=== PATIENT | male | born 1955 | race Caucasian/White ===

== ENCOUNTER 2021-08-13 20:06 | Inpatient (IN) | payer OTHER ==
[2021-08-13 20:35] VITALS: BMI 25.0
[2021-08-13] MEDS ORDERED: Carvedilol 25 MG TAB PO SCH (21:15)
[2021-08-13] MEDS ORDERED: guaiFENesin ER 600 MG TAB PO SCH (21:30)
[2021-08-13] MEDS: Nicotine 21 MG PATCH TD SCH (21:48)
[2021-08-13] MEDS: methylPREDNISolone Sod Succ 40 MG VIAL IVP SCH (21:48)
[2021-08-13] MEDS: Apixaban 5 MG TAB PO SCH (21:49)
[2021-08-13] MEDS: cefTRIAXone\\ROCEPHIN 1 GM in Sodium Chloride 0.9% 100 ML IVPB SCH (22:58)
[2021-08-14 04:48] LABS: #Monocytes 0.1 10x3/uL (0.0-1.1); #Neutrophils 3.1 10x3/uL (1.5-8.4); %Basophils 0.5 % (0.0-2.0); %Lymphocytes 17.5 % (18.0-47.0); %Monocytes 2.3 % (0.0-10.0); %Neutrophils 79.4 % (40.0-75.0); Hemoglobin 14.1 g/dL (13.5-17.5); Mean Corpuscular HGB CONC 33.3 g/dL (32.0-36.0); Mean Corpuscular Hemoglobin 34.8 pg (27.0-33.0); Mean Corpuscular Volume 104.4 fl (81.2-95.1); Platelet Count 166 10x3/uL (150-450); RBC Distribution Width 12.4 % (11.5-14.5); Red Blood Cell (RBC) Count 4.05 10x6/uL (4.32-5.72); White Blood Cell (WBC) Count 3.9 10x3/uL (3.5-10.5)
[2021-08-14 04:51] LABS: Anion Gap 13 mmol/L (10-20); BUN (Urea Nitrogen) 21 mg/dL (8.4-25.7); Calc. Creatinine Clearance 86 mL/min (70-130); Carbon Dioxide 32 mmol/L (23-31); Cardiac Risk 2.7 (Less than 4.5); Chloride 94 mmol/L (98-107); Cholesterol 145 mg/dl (< 200 Desired); Glucose 275 mg/dL (80-115); HDL Cholesterol 53 mg/dL (>60 Neg Risk); LDL Cholesterol, Calculated 77 mg/dL; Magnesium 2.2 mg/dL (1.6-2.6); Potassium 4.3 mmol/L (3.5-5.1); Sodium 135 mmol/L (136-145); Triglycerides 73 mg/dL (Less than 150)
[2021-08-14] MEDS: Arformoterol 15 MCG/2 ML NEB NEB SCH ×2 (07:10→19:22)
[2021-08-14] MEDS: Budesonide 0.5 MG/2 ML NEB NEB SCH ×2 (07:20→19:22)
[2021-08-14] MEDS: Lisinopril 5 MG TAB PO SCH (08:44)
[2021-08-14] MEDS: Amiodarone 200 MG TAB PO SCH ×2 (08:44→21:04)
[2021-08-14] MEDS: Carvedilol 25 MG TAB PO SCH ×2 (08:44→17:12)
[2021-08-14] MEDS: methylPREDNISolone Sod Succ 40 MG VIAL IVP SCH ×2 (08:44→21:05)
[2021-08-14] MEDS: guaiFENesin ER 600 MG TAB PO SCH ×2 (08:44→21:04)
[2021-08-14] MEDS: Apixaban 5 MG TAB PO SCH ×2 (08:45→21:04)
[2021-08-14] MEDS ORDERED: FLU VACC QS2021-22(6MOS UP)/PF 60 MCG/0.5 ML SYRINGE IM ONE (09:00)
[2021-08-14] MEDS ORDERED: Dextrose 50% Abboject 50 ML SYRINGE SLOW IVP PRN (12:47)
[2021-08-14] MEDS ORDERED: Dextrose 5% in Water 1,000 ML IV PRN (12:47)
[2021-08-14] MEDS: Nicotine 21 MG PATCH TD SCH (21:05)
[2021-08-14] MEDS: HumaLOG 300 UNITS/3 ML VIAL SC PRN (21:11)
[2021-08-14] MEDS: cefTRIAXone\\ROCEPHIN 1 GM in Sodium Chloride 0.9% 100 ML IVPB SCH (22:19)
[2021-08-15 05:23] LABS: Anion Gap 14 mmol/L (10-20); BUN (Urea Nitrogen) 32 mg/dL (8.4-25.7); Calc. Creatinine Clearance 84 mL/min (70-130); Calcium 8.6 mg/dL (7.8-10.44); Carbon Dioxide 31 mmol/L (23-31); Chloride 97 mmol/L (98-107); Glucose 151 mg/dL (80-115); Potassium 4.6 mmol/L (3.5-5.1); Sodium 137 mmol/L (136-145)
[2021-08-15] MEDS: Budesonide 0.5 MG/2 ML NEB NEB SCH ×2 (07:24→18:55)
[2021-08-15] MEDS: Arformoterol 15 MCG/2 ML NEB NEB SCH ×2 (07:27→18:55)
[2021-08-15] MEDS: Apixaban 5 MG TAB PO SCH ×2 (09:13→20:58)
[2021-08-15] MEDS: Folic Acid 1 MG TAB PO SCH (09:13)
[2021-08-15] MEDS: Amiodarone 200 MG TAB PO SCH ×2 (09:14→20:58)
[2021-08-15] MEDS: Lisinopril 5 MG TAB PO SCH (09:14)
[2021-08-15] MEDS: Carvedilol 25 MG TAB PO SCH ×2 (09:14→18:19)
[2021-08-15] MEDS: guaiFENesin ER 600 MG TAB PO SCH ×2 (09:15→20:58)
[2021-08-15] MEDS: methylPREDNISolone Sod Succ 40 MG VIAL IVP SCH ×3 (09:31→20:58)
[2021-08-15 11:25] LABS: Hemoglobin A1c 5.5 % (4.0-6.0)
[2021-08-15] MEDS: HumaLOG 300 UNITS/3 ML VIAL SC PRN ×2 (18:21→22:12)
[2021-08-15] MEDS: cefTRIAXone\\ROCEPHIN 1 GM in Sodium Chloride 0.9% 100 ML IVPB SCH (21:01)
[2021-08-15] MEDS: Nicotine 21 MG PATCH TD SCH (21:01)
[2021-08-16] MEDS: Arformoterol 15 MCG/2 ML NEB NEB SCH ×3 (07:10→20:03)
[2021-08-16] MEDS: Budesonide 0.5 MG/2 ML NEB NEB SCH ×2 (07:20→19:10)
[2021-08-16] MEDS: methylPREDNISolone Sod Succ 40 MG VIAL IVP SCH ×3 (09:06→17:37)
[2021-08-16] MEDS: Carvedilol 25 MG TAB PO SCH ×2 (09:07→17:37)
[2021-08-16] MEDS: Amiodarone 200 MG TAB PO SCH ×2 (09:07→21:25)
[2021-08-16] MEDS: guaiFENesin ER 600 MG TAB PO SCH (09:07)
[2021-08-16] MEDS: Apixaban 5 MG TAB PO SCH ×2 (09:07→21:25)
[2021-08-16] MEDS: Lisinopril 5 MG TAB PO SCH (09:08)
[2021-08-16] MEDS: Folic Acid 1 MG TAB PO SCH (09:08)
[2021-08-16] MEDS: Guaifenesin DM 100-10/5 ML UDCUP PO PRN ×2 (12:40→21:26)
[2021-08-16] MEDS: HumaLOG 300 UNITS/3 ML VIAL SC PRN (21:33)
[2021-08-17] MEDS: cefTRIAXone\\ROCEPHIN 1 GM in Sodium Chloride 0.9% 100 ML IVPB SCH ×2 (01:31→21:59)
[2021-08-17] MEDS: Nicotine 21 MG PATCH TD SCH ×2 (01:31→20:13)
[2021-08-17] MEDS: methylPREDNISolone Sod Succ 40 MG VIAL IVP SCH ×5 (01:31→23:17)
[2021-08-17] MEDS: Guaifenesin DM 100-10/5 ML UDCUP PO PRN ×2 (06:18→14:41)
[2021-08-17] MEDS: Arformoterol 15 MCG/2 ML NEB NEB SCH (07:10)
[2021-08-17] MEDS: Budesonide 0.5 MG/2 ML NEB NEB SCH ×2 (07:20→19:55)
[2021-08-17] MEDS: Folic Acid 1 MG TAB PO SCH (07:48)
[2021-08-17] MEDS: Lisinopril 5 MG TAB PO SCH (07:48)
[2021-08-17] MEDS: Carvedilol 25 MG TAB PO SCH ×2 (07:48→16:50)
[2021-08-17] MEDS: Apixaban 5 MG TAB PO SCH ×2 (07:48→20:12)
[2021-08-17] MEDS: Amiodarone 200 MG TAB PO SCH ×2 (07:48→20:12)
[2021-08-18] MEDS: Guaifenesin DM 100-10/5 ML UDCUP PO PRN ×2 (00:41→20:28)
[2021-08-18] MEDS: methylPREDNISolone Sod Succ 40 MG VIAL IVP SCH ×2 (06:16→11:17)
[2021-08-18] MEDS: HumaLOG 300 UNITS/3 ML VIAL SC PRN ×4 (06:45→20:31)
[2021-08-18] MEDS: Budesonide 0.5 MG/2 ML NEB NEB SCH ×2 (07:35→19:10)
[2021-08-18] MEDS: Arformoterol 15 MCG/2 ML NEB NEB SCH ×2 (07:35→18:55)
[2021-08-18] MEDS: Apixaban 5 MG TAB PO SCH ×2 (07:42→20:27)
[2021-08-18] MEDS: Lisinopril 5 MG TAB PO SCH (07:42)
[2021-08-18] MEDS: Carvedilol 25 MG TAB PO SCH ×2 (07:43→16:38)
[2021-08-18] MEDS: Folic Acid 1 MG TAB PO SCH (07:43)
[2021-08-18] MEDS: Amiodarone 200 MG TAB PO SCH ×2 (07:43→20:27)
[2021-08-18 14:23] LABS: ALT (SGPT) 38 U/L (8-55); AST (SGOT) 19 U/L (5-34); Alkaline Phosphatase 64 U/L (40-110); Anion Gap 10 mmol/L (10-20); BUN (Urea Nitrogen) 23 mg/dL (8.4-25.7); Bilirubin, Total 0.2 mg/dL (0.2-1.2); Calc. Creatinine Clearance 114 mL/min (70-130); Calcium 8.9 mg/dL (7.8-10.44); Carbon Dioxide 30 mmol/L (23-31); Chloride 98 mmol/L (98-107); Glucose 147 mg/dL (80-115); Potassium 4.4 mmol/L (3.5-5.1); Sodium 134 mmol/L (136-145)
[2021-08-18 14:43] LABS: SARS-CoV-2 NAA Rapid Test Not Detected (NotDetected)
[2021-08-18 15:08] LABS: Actual Bicarbonate (HCO3a) 27.1 mEq/L (22-28); Base Excess (BEa) 2.8 mEq/L (-2.0 to +3.0); CO2 Tension 40.7 mmHg (35.0-45.0); Calcium, Ionized (arterial) 1.23 mmol/L (1.12-1.30); Carboxyhemoglobin (COHb) 1.1 gm% (0.0-3.0); Hemoglobin (Hb) 13.7 g/dL (14.0-18.0); O2 Tension (PaO2), arterial 56.2 mmHg (> 80.0); Potassium - ABG Lab 4.3 mmol/L (3.70-5.30); Puncture Site LRA; pH, Arterial 7.44 (7.35-7.45)
[2021-08-18 15:13] LABS: ALV-art Gradient 42.655 mmHg (0-20)
[2021-08-18 17:48] LABS: Legionella Urinary Ag Negative (Negative); Strep pneumo Urine Ag NEGATIVE (NEGATIVE)
[2021-08-18] MEDS: methylPREDNISolone Sod Succ/PF 125 MG/2 ML VIAL IVP SCH (20:27)
[2021-08-18] MEDS: Nicotine 21 MG PATCH TD SCH (20:28)
[2021-08-18] MEDS: cefTRIAXone\\ROCEPHIN 1 GM in Sodium Chloride 0.9% 100 ML IVPB SCH (22:17)
[2021-08-19] MEDS: methylPREDNISolone Sod Succ/PF 125 MG/2 ML VIAL IVP SCH ×2 (04:52→10:56)
[2021-08-19] MEDS: HumaLOG 300 UNITS/3 ML VIAL SC PRN ×3 (06:38→16:32)
[2021-08-19] MEDS: Arformoterol 15 MCG/2 ML NEB NEB SCH ×2 (07:40→19:50)
[2021-08-19] MEDS: Budesonide 0.5 MG/2 ML NEB NEB SCH ×2 (07:45→19:50)
[2021-08-19] MEDS: Lisinopril 5 MG TAB PO SCH (07:46)
[2021-08-19] MEDS: Carvedilol 25 MG TAB PO SCH ×2 (07:47→16:32)
[2021-08-19] MEDS: Apixaban 5 MG TAB PO SCH ×2 (07:47→20:59)
[2021-08-19] MEDS: Folic Acid 1 MG TAB PO SCH (07:47)
[2021-08-19] MEDS: Amiodarone 200 MG TAB PO SCH ×2 (07:47→20:59)
[2021-08-19 08:28] LABS: #Monocytes 0.5 10x3/uL (0.0-1.1); %Basophils 0.1 % (0.0-2.0); %Lymphocytes 3.7 % (18.0-47.0); %Monocytes 4.3 % (0.0-10.0); %Neutrophils 90.3 % (40.0-75.0); Hemoglobin 11.9 g/dL (13.5-17.5); Mean Corpuscular HGB CONC 33.3 g/dL (32.0-36.0); Mean Corpuscular Hemoglobin 35.1 pg (27.0-33.0); Mean Corpuscular Volume 105.3 fl (81.2-95.1); Mean Platelet Volume 10.6 fl (7.4-10.4); Platelet Count 211 10x3/uL (150-450); RBC Distribution Width 12.4 % (11.5-14.5); Red Blood Cell (RBC) Count 3.39 10x6/uL (4.32-5.72); White Blood Cell (WBC) Count 11.1 10x3/uL (3.5-10.5)
[2021-08-19 08:31] LABS: ALT (SGPT) 36 U/L (8-55); AST (SGOT) 19 U/L (5-34); Albumin 2.9 g/dL (3.4-4.8); Alkaline Phosphatase 59 U/L (40-110); Anion Gap 8 mmol/L (10-20); BUN (Urea Nitrogen) 22 mg/dL (8.4-25.7); Bilirubin, Total 0.3 mg/dL (0.2-1.2); Calc. Creatinine Clearance 118 mL/min (70-130); Calcium 8.7 mg/dL (7.8-10.44); Carbon Dioxide 33 mmol/L (23-31); Chloride 97 mmol/L (98-107); Globulin 1.9 g/dL (2.4-3.5); Glucose 156 mg/dL (80-115); Potassium 4.3 mmol/L (3.5-5.1); Protein, Total 4.8 g/dL (5.8-8.1); Sodium 134 mmol/L (136-145)
[2021-08-19 10:20] LABS: Macrocytosis SLIGHT = 6-15 cells (100X) (0-5/hpf); Platelet Morphology Comment Appears Adequate
[2021-08-19] MEDS: Guaifenesin DM 100-10/5 ML UDCUP PO PRN ×2 (10:56→22:28)
[2021-08-19] MEDS: Nicotine 21 MG PATCH TD SCH (21:58)
[2021-08-20 04:28] LABS: ALT (SGPT) 33 U/L (8-55); AST (SGOT) 16 U/L (5-34); Albumin 2.6 g/dL (3.4-4.8); Alkaline Phosphatase 48 U/L (40-110); Anion Gap 8 mmol/L (10-20); BUN (Urea Nitrogen) 21 mg/dL (8.4-25.7); Bilirubin, Total 0.4 mg/dL (0.2-1.2); Calc. Creatinine Clearance 116 mL/min (70-130); Calcium 8.4 mg/dL (7.8-10.44); Carbon Dioxide 35 mmol/L (23-31); Globulin 1.7 g/dL (2.4-3.5); Glucose 178 mg/dL (80-115); Potassium 4.8 mmol/L (3.5-5.1); Protein, Total 4.3 g/dL (5.8-8.1); Sodium 133 mmol/L (136-145)
[2021-08-20 04:34] LABS: Chloride 95 mmol/L (98-107)
[2021-08-20 04:35] LABS: #Monocytes 0.7 10x3/uL (0.0-1.1); #Neutrophils 8.8 10x3/uL (1.5-8.4); %Basophils 0.1 % (0.0-2.0); %Monocytes 7.2 % (0.0-10.0); %Neutrophils 86.7 % (40.0-75.0); Hemoglobin 11.3 g/dL (13.5-17.5); Mean Corpuscular HGB CONC 33.5 g/dL (32.0-36.0); Mean Corpuscular Volume 104.3 fl (81.2-95.1); Mean Platelet Volume 10.8 fl (7.4-10.4); Platelet Count 198 10x3/uL (150-450); RBC Distribution Width 12.3 % (11.5-14.5); Red Blood Cell (RBC) Count 3.23 10x6/uL (4.32-5.72); White Blood Cell (WBC) Count 10.2 10x3/uL (3.5-10.5)
[2021-08-20] MEDS: Budesonide 0.5 MG/2 ML NEB NEB SCH ×2 (07:02→19:15)
[2021-08-20] MEDS: Arformoterol 15 MCG/2 ML NEB NEB SCH ×2 (07:02→19:05)
[2021-08-20] MEDS: Carvedilol 25 MG TAB PO SCH ×2 (10:14→17:28)
[2021-08-20] MEDS: Lisinopril 5 MG TAB PO SCH (10:14)
[2021-08-20] MEDS: Apixaban 5 MG TAB PO SCH ×2 (10:15→20:26)
[2021-08-20] MEDS: Amiodarone 200 MG TAB PO SCH ×2 (10:15→20:26)
[2021-08-20] MEDS: Folic Acid 1 MG TAB PO SCH (10:15)
[2021-08-20] MEDS: Guaifenesin DM 100-10/5 ML UDCUP PO PRN ×2 (10:34→23:57)
[2021-08-20] MEDS: HumaLOG 300 UNITS/3 ML VIAL SC PRN (13:20)
[2021-08-20] MEDS: Nicotine 21 MG PATCH TD SCH (20:26)
[2021-08-21 04:27] LABS: ALT (SGPT) 39 U/L (8-55); AST (SGOT) 20 U/L (5-34); Albumin 2.7 g/dL (3.4-4.8); Alkaline Phosphatase 47 U/L (40-110); Anion Gap 9 mmol/L (10-20); BUN (Urea Nitrogen) 22 mg/dL (8.4-25.7); Bilirubin, Total 0.5 mg/dL (0.2-1.2); Calc. Creatinine Clearance 121 mL/min (70-130); Calcium 8.4 mg/dL (7.8-10.44); Carbon Dioxide 34 mmol/L (23-31); Chloride 96 mmol/L (98-107); Globulin 1.7 g/dL (2.4-3.5); Glucose 92 mg/dL (80-115); Potassium 4.7 mmol/L (3.5-5.1); Protein, Total 4.4 g/dL (5.8-8.1); Sodium 134 mmol/L (136-145)
[2021-08-21 04:45] LABS: #Monocytes 1.3 10x3/uL (0.0-1.1); #Neutrophils 8.1 10x3/uL (1.5-8.4); %Basophils 0.2 % (0.0-2.0); %Eosinophils 0.2 % (0.0-6.0); %Lymphocytes 9.4 % (18.0-47.0); %Monocytes 11.8 % (0.0-10.0); %Neutrophils 76.1 % (40.0-75.0); Hemoglobin 12.2 g/dL (13.5-17.5); Mean Corpuscular HGB CONC 34.2 g/dL (32.0-36.0); Mean Corpuscular Hemoglobin 35.1 pg (27.0-33.0); Mean Corpuscular Volume 102.6 fl (81.2-95.1); Platelet Count 194 10x3/uL (150-450); RBC Distribution Width 12.5 % (11.5-14.5); Red Blood Cell (RBC) Count 3.48 10x6/uL (4.32-5.72); White Blood Cell (WBC) Count 10.6 10x3/uL (3.5-10.5)
[2021-08-21] MEDS: Arformoterol 15 MCG/2 ML NEB NEB SCH ×2 (07:45→18:55)
[2021-08-21] MEDS: Budesonide 0.5 MG/2 ML NEB NEB SCH ×2 (08:50→19:15)
[2021-08-21] MEDS: Lisinopril 5 MG TAB PO SCH (08:56)
[2021-08-21] MEDS: Amiodarone 200 MG TAB PO SCH ×2 (08:56→20:51)
[2021-08-21] MEDS: Apixaban 5 MG TAB PO SCH ×2 (08:57→20:51)
[2021-08-21] MEDS: Folic Acid 1 MG TAB PO SCH (08:57)
[2021-08-21] MEDS: Carvedilol 25 MG TAB PO SCH ×2 (08:57→17:59)
[2021-08-21] MEDS: Nicotine 21 MG PATCH TD SCH (20:51)
[2021-08-22 04:28] LABS: #Eosinphils 0.2 10x3/uL (0.0-0.5); #Monocytes 1.1 10x3/uL (0.0-1.1); #Neutrophils 7.3 10x3/uL (1.5-8.4); %Basophils 0.1 % (0.0-2.0); %Eosinophils 2.3 % (0.0-6.0); %Monocytes 10.6 % (0.0-10.0); Hemoglobin 11.8 g/dL (13.5-17.5); Mean Corpuscular HGB CONC 33.9 g/dL (32.0-36.0); Mean Corpuscular Hemoglobin 35.5 pg (27.0-33.0); Mean Corpuscular Volume 104.8 fl (81.2-95.1); Platelet Count 185 10x3/uL (150-450); RBC Distribution Width 12.7 % (11.5-14.5); Red Blood Cell (RBC) Count 3.32 10x6/uL (4.32-5.72); White Blood Cell (WBC) Count 10.1 10x3/uL (3.5-10.5)
[2021-08-22 04:46] LABS: ALT (SGPT) 38 U/L (8-55); AST (SGOT) 21 U/L (5-34); Albumin 2.5 g/dL (3.4-4.8); Alkaline Phosphatase 55 U/L (40-110); Anion Gap 10 mmol/L (10-20); BUN (Urea Nitrogen) 22 mg/dL (8.4-25.7); Bilirubin, Total 0.3 mg/dL (0.2-1.2); Calc. Creatinine Clearance 129 mL/min (70-130); Calcium 7.9 mg/dL (7.8-10.44); Carbon Dioxide 32 mmol/L (23-31); Chloride 98 mmol/L (98-107); Globulin 1.6 g/dL (2.4-3.5); Glucose 118 mg/dL (80-115); Potassium 4.1 mmol/L (3.5-5.1); Protein, Total 4.1 g/dL (5.8-8.1); Sodium 136 mmol/L (136-145)
[2021-08-22] MEDS: Amiodarone 200 MG TAB PO SCH (08:01)
[2021-08-22] MEDS: Folic Acid 1 MG TAB PO SCH (08:01)
[2021-08-22] MEDS: Lisinopril 5 MG TAB PO SCH (08:01)
[2021-08-22] MEDS: Apixaban 5 MG TAB PO SCH (08:01)
[2021-08-22] MEDS: Carvedilol 25 MG TAB PO SCH (08:02)
[2021-08-22] MEDS: Budesonide 0.5 MG/2 ML NEB NEB SCH (08:15)
[2021-08-22] MEDS: Arformoterol 15 MCG/2 ML NEB NEB SCH (08:19)
[2021-08-22 08:44] VITALS: TEMP 97.1
[2021-08-22 13:43] VITALS: BP 92/54
== END 2021-08-22 14:00 | disposition home or self-care (01) | DRG 191 ==
LOC: CSHTELE 20:06
PROVIDERS: ADMIT Family Medicine; ATTEND Family Medicine
DX: J44.1 Chronic obstructive pulmonary disease with (acute) exacerbation (principal); E87.3 Alkalosis; Z20.822 Contact with and (suspected) exposure to COVID-19; I51.3 Intracardiac thrombosis, not elsewhere classified; I48.0 Paroxysmal atrial fibrillation; F17.210 Nicotine dependence, cigarettes, uncomplicated; I10 Essential (primary) hypertension; R73.9 Hyperglycemia, unspecified; T38.0X5A Adverse effect of glucocorticoids and synthetic analogues, initial encounter; D75.89 Other specified diseases of blood and blood-forming organs; I73.9 Peripheral vascular disease, unspecified; E78.5 Hyperlipidemia, unspecified; Z79.01 Long term (current) use of anticoagulants; Z79.51 Long term (current) use of inhaled steroids; Z98.890 Other specified postprocedural states
CPT/HCPCS: 0240U; 36415; 36416; 36600; 71250; 80048; 80053; 80061; 82607; 82746; 82805; 83036; 83735; 84145; 85025; 87449; 87899; 94640; 94760; 94762; J0696; J1815; J2920; J2930; J3490; J7620; J7626

== ENCOUNTER 2021-09-24 12:17 | Inpatient (IN) | payer OTHER ==
[2021-09-24 13:12] LABS: #Basophils 0.1 10x3/uL (0.0-0.2); #Monocytes 1.3 10x3/uL (0.0-1.1); #Neutrophils 9.7 10x3/uL (1.5-8.4); %Basophils 0.5 % (0.0-2.0); %Eosinophils 0.3 % (0.0-6.0); %Lymphocytes 12.5 % (18.0-47.0); %Monocytes 9.9 % (0.0-10.0); %Neutrophils 76.3 % (40.0-75.0); Hemoglobin 12.7 g/dL (13.5-17.5); Mean Corpuscular HGB CONC 33.9 g/dL (32.0-36.0); Mean Corpuscular Hemoglobin 35.3 pg (27.0-33.0); Mean Corpuscular Volume 104.2 fl (81.2-95.1); Mean Platelet Volume 10.4 fl (7.4-10.4); Platelet Count 212 10x3/uL (150-450); RBC Distribution Width 12.9 % (11.5-14.5); White Blood Cell (WBC) Count 12.8 10x3/uL (3.5-10.5)
[2021-09-24] MEDS ORDERED: Ventolin HFA Inhaler 60 PUFF INHALER ONE (13:27)
[2021-09-24] MEDS ORDERED: methylPREDNISolone Sod Succ/PF 125 MG/2 ML VIAL ONE (13:27)
[2021-09-24 13:29] LABS: ALT (SGPT) 48 U/L (8-55); AST (SGOT) 28 U/L (5-34); Albumin 3.3 g/dL (3.4-4.8); Alkaline Phosphatase 79 U/L (40-110); Anion Gap 10 mmol/L (10-20); BUN (Urea Nitrogen) 9 mg/dL (8.4-25.7); Calc. Creatinine Clearance 0 mL/min (70-130); Calcium 8.3 mg/dL (7.8-10.44); Carbon Dioxide 36 mmol/L (23-31); Chloride 92 mmol/L (98-107); Globulin 2.9 g/dL (2.4-3.5); Glucose 116 mg/dL (80-115); Magnesium 1.8 mg/dL (1.6-2.6); Potassium 3.2 mmol/L (3.5-5.1); Protein, Total 6.2 g/dL (5.8-8.1); Sodium 135 mmol/L (136-145)
[2021-09-24 13:46] LABS: SARS-CoV-2 NAA Rapid Test Not Detected (NotDetected)
[2021-09-24] MEDS ORDERED: Potassium Chloride 20 MEQ TAB ONE (14:12)
[2021-09-24] MEDS ORDERED: cefTRIAXone\\ROCEPHIN 1 GM VIAL ONE (15:48)
[2021-09-24] MEDS ORDERED: Ondansetron ODT 4 MG TAB PO PRN (17:34)
[2021-09-24] MEDS ORDERED: Acetaminophen 325 MG TAB PO PRN (17:34)
[2021-09-24 20:28] VITALS: BMI 25.1
[2021-09-24] MEDS: Famotidine 20 MG TAB PO SCH (21:50)
[2021-09-24] MEDS: Carvedilol 25 MG TAB PO SCH (21:50)
[2021-09-24] MEDS: Amiodarone 200 MG TAB PO SCH (21:50)
[2021-09-25 04:30] LABS: #Monocytes 0.2 10x3/uL (0.0-1.1); %Basophils 0.3 % (0.0-2.0); %Monocytes 2.6 % (0.0-10.0); %Neutrophils 86.4 % (40.0-75.0); Hemoglobin 12.5 g/dL (13.5-17.5); Mean Corpuscular HGB CONC 33.5 g/dL (32.0-36.0); Mean Corpuscular Hemoglobin 34.9 pg (27.0-33.0); Mean Corpuscular Volume 104.2 fl (81.2-95.1); Mean Platelet Volume 10.7 fl (7.4-10.4); Platelet Count 221 10x3/uL (150-450); RBC Distribution Width 12.9 % (11.5-14.5); Red Blood Cell (RBC) Count 3.58 10x6/uL (4.32-5.72); White Blood Cell (WBC) Count 6.9 10x3/uL (3.5-10.5)
[2021-09-25 04:42] LABS: Anion Gap 11 mmol/L (10-20); BUN (Urea Nitrogen) 12 mg/dL (8.4-25.7); Calc. Creatinine Clearance 121 mL/min (70-130); Calcium 8.6 mg/dL (7.8-10.44); Carbon Dioxide 34 mmol/L (23-31); Chloride 97 mmol/L (98-107); Glucose 151 mg/dL (80-115); Potassium 3.6 mmol/L (3.5-5.1); Sodium 138 mmol/L (136-145)
[2021-09-25] MEDS ORDERED: predniSONE 20 MG TAB PO SCH (09:00)
[2021-09-25] MEDS: Amiodarone 200 MG TAB PO SCH ×2 (09:55→21:59)
[2021-09-25] MEDS: Lisinopril 10 MG TAB PO SCH (09:55)
[2021-09-25] MEDS: Carvedilol 25 MG TAB PO SCH ×2 (09:55→21:59)
[2021-09-25] MEDS: Famotidine 20 MG TAB PO SCH ×2 (09:56→21:59)
[2021-09-25] MEDS: Apixaban 5 MG TAB PO SCH (09:57)
[2021-09-25] MEDS ORDERED: cefTRIAXone\\ROCEPHIN 1 GM in Sodium Chloride 0.9% 100 ML IVPB SCH (16:00)
[2021-09-25] MEDS: methylPREDNISolone Sod Succ 40 MG VIAL IVP SCH ×2 (18:16→23:23)
[2021-09-25] MEDS ORDERED: Gabapentin 300 MG CAP PO SCH (23:15)
[2021-09-26] MEDS: methylPREDNISolone Sod Succ 40 MG VIAL IVP SCH ×4 (06:34→23:26)
[2021-09-26] MEDS ORDERED: FLU VACC QS2021-22(6MOS UP)/PF 60 MCG/0.5 ML SYRINGE IM ONE (09:00)
[2021-09-26] MEDS ORDERED: hydrALAZINE 20 MG/ML VIAL SLOW IVP PRN (09:28)
[2021-09-26] MEDS ORDERED: Dextrose 5% in Water 1,000 ML IV PRN (09:30)
[2021-09-26] MEDS ORDERED: Dextrose 50% Abboject 50 ML SYRINGE SLOW IVP PRN (09:30)
[2021-09-26] MEDS: Lisinopril 10 MG TAB PO SCH (10:13)
[2021-09-26] MEDS: Amiodarone 200 MG TAB PO SCH ×2 (10:14→23:22)
[2021-09-26] MEDS: Carvedilol 25 MG TAB PO SCH ×2 (10:14→23:22)
[2021-09-26] MEDS: Famotidine 20 MG TAB PO SCH ×2 (10:14→23:22)
[2021-09-26] MEDS: Apixaban 5 MG TAB PO SCH (10:14)
[2021-09-26] MEDS: HumaLOG 300 UNITS/3 ML VIAL SC PRN ×2 (11:58→22:44)
[2021-09-27] MEDS ORDERED: Gabapentin 300 MG CAP PO SCH (01:45)
[2021-09-27] MEDS: methylPREDNISolone Sod Succ 40 MG VIAL IVP SCH ×3 (05:55→18:29)
[2021-09-27] MEDS: HumaLOG 300 UNITS/3 ML VIAL SC PRN ×4 (06:44→21:01)
[2021-09-27] MEDS: Carvedilol 25 MG TAB PO SCH ×2 (10:41→20:59)
[2021-09-27] MEDS: Apixaban 5 MG TAB PO SCH (10:41)
[2021-09-27] MEDS: Famotidine 20 MG TAB PO SCH ×2 (10:41→20:59)
[2021-09-27] MEDS: Amiodarone 200 MG TAB PO SCH ×2 (10:41→20:59)
[2021-09-27] MEDS: Lisinopril 10 MG TAB PO SCH (10:41)
[2021-09-27] MEDS: Gabapentin 300 MG CAP PO SCH (21:00)
[2021-09-28] MEDS: HumaLOG 300 UNITS/3 ML VIAL SC PRN ×3 (05:04→19:34)
[2021-09-28] MEDS: methylPREDNISolone Sod Succ 40 MG VIAL IVP SCH ×4 (05:56→19:34)
[2021-09-28] MEDS: Amiodarone 200 MG TAB PO SCH ×2 (10:03→21:17)
[2021-09-28] MEDS: Lisinopril 10 MG TAB PO SCH (10:03)
[2021-09-28] MEDS: Famotidine 20 MG TAB PO SCH ×2 (10:04→21:15)
[2021-09-28] MEDS: Folic Acid 1 MG TAB PO SCH (10:04)
[2021-09-28] MEDS: Apixaban 5 MG TAB PO SCH (10:04)
[2021-09-28] MEDS: Carvedilol 25 MG TAB PO SCH ×2 (10:04→21:16)
[2021-09-28] MEDS: Gabapentin 300 MG CAP PO SCH (21:16)
[2021-09-29] MEDS: methylPREDNISolone Sod Succ 40 MG VIAL IVP SCH ×3 (00:26→22:26)
[2021-09-29] MEDS: HumaLOG 300 UNITS/3 ML VIAL SC PRN ×3 (06:14→22:34)
[2021-09-29] MEDS: Lisinopril 10 MG TAB PO SCH (10:56)
[2021-09-29] MEDS: Folic Acid 1 MG TAB PO SCH (10:56)
[2021-09-29] MEDS: Amiodarone 200 MG TAB PO SCH ×2 (10:56→22:28)
[2021-09-29] MEDS: Carvedilol 25 MG TAB PO SCH ×2 (10:57→22:28)
[2021-09-29] MEDS: Apixaban 5 MG TAB PO SCH (10:57)
[2021-09-29] MEDS: Famotidine 20 MG TAB PO SCH ×2 (10:57→22:27)
[2021-09-29] MEDS: Gabapentin 300 MG CAP PO SCH (22:26)
[2021-09-30 04:20] LABS: #Basophils 0.1 10x3/uL (0.0-0.2); #Monocytes 0.9 10x3/uL (0.0-1.1); #Neutrophils 14.3 10x3/uL (1.5-8.4); %Basophils 0.5 % (0.0-2.0); %Lymphocytes 3.6 % (18.0-47.0); %Monocytes 5.3 % (0.0-10.0); %Neutrophils 87.1 % (40.0-75.0); Hemoglobin 12.8 g/dL (13.5-17.5); Mean Corpuscular HGB CONC 32.4 g/dL (32.0-36.0); Mean Corpuscular Hemoglobin 34.6 pg (27.0-33.0); Mean Corpuscular Volume 106.8 fl (81.2-95.1); Mean Platelet Volume 10.6 fl (7.4-10.4); Platelet Count 308 10x3/uL (150-450); RBC Distribution Width 12.5 % (11.5-14.5); White Blood Cell (WBC) Count 16.5 10x3/uL (3.5-10.5)
[2021-09-30 04:37] LABS: Anion Gap 11 mmol/L (10-20); BUN (Urea Nitrogen) 20 mg/dL (8.4-25.7); Calc. Creatinine Clearance 116 mL/min (70-130); Calcium 8.4 mg/dL (7.8-10.44); Carbon Dioxide 34 mmol/L (23-31); Chloride 98 mmol/L (98-107); Glucose 142 mg/dL (80-115); Potassium 4.6 mmol/L (3.5-5.1); Sodium 138 mmol/L (136-145)
[2021-09-30 04:57] LABS: Platelet Morphology Comment Appears Adequate; RBC Morphology Normal
[2021-09-30] MEDS: Apixaban 5 MG TAB PO SCH (08:20)
[2021-09-30] MEDS: Folic Acid 1 MG TAB PO SCH (08:20)
[2021-09-30] MEDS: Carvedilol 25 MG TAB PO SCH ×2 (08:20→20:46)
[2021-09-30] MEDS: Lisinopril 10 MG TAB PO SCH ×2 (08:20→20:46)
[2021-09-30] MEDS: Amiodarone 200 MG TAB PO SCH ×2 (08:20→20:46)
[2021-09-30] MEDS: methylPREDNISolone Sod Succ 40 MG VIAL IVP SCH ×2 (08:21→20:45)
[2021-09-30] MEDS: Famotidine 20 MG TAB PO SCH ×2 (08:21→20:46)
[2021-09-30] MEDS ORDERED: guaiFENesin ER 600 MG TAB PO SCH (09:45)
[2021-09-30] MEDS: HumaLOG 300 UNITS/3 ML VIAL SC PRN ×2 (13:30→21:06)
[2021-09-30] MEDS: Gabapentin 300 MG CAP PO SCH (20:46)
[2021-09-30] MEDS: guaiFENesin ER 600 MG TAB PO SCH (20:46)
[2021-10-01] MEDS: HumaLOG 300 UNITS/3 ML VIAL SC PRN ×3 (06:32→22:37)
[2021-10-01] MEDS: guaiFENesin ER 600 MG TAB PO SCH ×2 (10:42→22:38)
[2021-10-01] MEDS: Lisinopril 10 MG TAB PO SCH ×2 (10:43→22:39)
[2021-10-01] MEDS: Famotidine 20 MG TAB PO SCH ×2 (10:43→22:39)
[2021-10-01] MEDS: Folic Acid 1 MG TAB PO SCH (10:44)
[2021-10-01] MEDS: Amiodarone 200 MG TAB PO SCH ×2 (10:44→22:39)
[2021-10-01] MEDS: Carvedilol 25 MG TAB PO SCH ×2 (10:44→22:38)
[2021-10-01] MEDS: Apixaban 5 MG TAB PO SCH (10:44)
[2021-10-01] MEDS: methylPREDNISolone Sod Succ 40 MG VIAL IVP SCH ×2 (10:45→22:36)
[2021-10-01] MEDS: Gabapentin 300 MG CAP PO SCH (22:38)
[2021-10-02 04:48] LABS: Anion Gap 12 mmol/L (10-20); BUN (Urea Nitrogen) 22 mg/dL (8.4-25.7); Calc. Creatinine Clearance 113 mL/min (70-130); Calcium 8.2 mg/dL (7.8-10.44); Carbon Dioxide 30 mmol/L (23-31); Chloride 100 mmol/L (98-107); Glucose 234 mg/dL (80-115); Sodium 137 mmol/L (136-145)
[2021-10-02 04:49] LABS: Hemoglobin 12.5 g/dL (13.5-17.5); Mean Corpuscular HGB CONC 32.6 g/dL (32.0-36.0); Mean Corpuscular Hemoglobin 34.9 pg (27.0-33.0); Mean Platelet Volume 10.7 fl (7.4-10.4); Platelet Count 281 10x3/uL (150-450); RBC Distribution Width 12.8 % (11.5-14.5); Red Blood Cell (RBC) Count 3.58 10x6/uL (4.32-5.72); White Blood Cell (WBC) Count 14.6 10x3/uL (3.5-10.5)
[2021-10-02 04:57] LABS: Potassium 5.2 mmol/L (3.5-5.1)
[2021-10-02] MEDS: HumaLOG 300 UNITS/3 ML VIAL SC PRN ×2 (05:48→10:30)
[2021-10-02 07:17] LABS: Band 13 % (5-11); Lymphocytes 1 % (21-51); Monocytes 2 % (0-10); Myelocyte 3 % (0-0); Reactive Lymphocytes 1 % (0-10)
[2021-10-02 07:19] LABS: Anisocytosis SLIGHT = 6-15 cells (100X) (0-5/hpf); Macrocytosis MODERATE=16-30 cells (100X) (0-5/hpf); Neutrophil 80 % (42-75)
[2021-10-02 07:24] LABS: Toxic Granulation SLIGHT; Vacuoles SLIGHT
[2021-10-02 07:25] LABS: Giant Platelets SLIGHT; Large Platelets SLIGHT; Platelet Clumps SLIGHT
[2021-10-02 07:26] LABS: MDiff Complete? YES
[2021-10-02 07:27] LABS: Platelet Morphology Comment Appears Adequate
[2021-10-02] MEDS: Apixaban 5 MG TAB PO SCH (10:30)
[2021-10-02] MEDS: Carvedilol 25 MG TAB PO SCH (10:30)
[2021-10-02] MEDS: guaiFENesin ER 600 MG TAB PO SCH (10:30)
[2021-10-02] MEDS: Famotidine 20 MG TAB PO SCH (10:30)
[2021-10-02] MEDS: Folic Acid 1 MG TAB PO SCH (10:30)
[2021-10-02] MEDS: Amiodarone 200 MG TAB PO SCH (10:30)
[2021-10-02] MEDS: methylPREDNISolone Sod Succ 40 MG VIAL IVP SCH (10:30)
[2021-10-02 13:00] VITALS: BP 109/78; TEMP 97.8
== END 2021-10-02 13:25 | disposition home or self-care (01) | DRG 189 ==
LOC: CSHERS 12:17 → UNDOADMOB 16:38 → CSHTELE 16:38 → CSHERHOLD 16:38 → OBSVTOIN 17:34
PROVIDERS: ADMIT Internal Medicine; ATTEND Family Medicine
DX: J96.01 Acute respiratory failure with hypoxia (principal); J44.1 Chronic obstructive pulmonary disease with (acute) exacerbation; Z20.822 Contact with and (suspected) exposure to COVID-19; I10 Essential (primary) hypertension; I48.0 Paroxysmal atrial fibrillation; G62.9 Polyneuropathy, unspecified; E78.5 Hyperlipidemia, unspecified; Z79.01 Long term (current) use of anticoagulants; Z79.51 Long term (current) use of inhaled steroids; Z79.899 Other long term (current) drug therapy
CPT/HCPCS: 0240U; 36415; 36416; 71045; 80048; 80053; 83605; 83735; 84484; 85025; 87070; 87205; 93005; 94640; 94760; 96365; 96375; J0360; J0696; J1815; J1956; J2920; J2930; J7512; J7620